=== PATIENT | female | born 1970 | race Hispanic/Latino ===

== ENCOUNTER 2019-04-28 15:50 | Emergency (ER) | payer BC, SELFPAY ==
[2019-04-28] MEDS ORDERED: MAGNESIUM HYDROXIDE 30 ML/UDCUP ONE (17:01)
[2019-04-28] MEDS ORDERED: LIDOCAINE HCL 2% VISCOUS 15 ML UDCUP ONE (17:01)
== END 2019-04-28 18:33 | disposition home or self-care (01) ==
LOC: EDH 15:50
DX: K29.00 Acute gastritis without bleeding (principal); Z98.890 Other specified postprocedural states; Z79.2 Long term (current) use of antibiotics
CPT/HCPCS: 71046; 87804; 93005

== ENCOUNTER 2022-05-09 12:10 | Emergency (ER) | payer BC, OTHER ==
[~2022-05-09] VITALS: Ht 157.5 cm; Wt 53.1 kg
[2022-05-09 16:18] VITALS: BP 142/79
== END 2022-05-09 16:19 | disposition home or self-care (01) ==
LOC: EDH 12:10
DX: S01.01XA Laceration without foreign body of scalp, initial encounter (principal); M54.50 Low back pain, unspecified; Z90.49 Acquired absence of other specified parts of digestive tract; W18.39XA Other fall on same level, initial encounter; Y93.89 Activity, other specified; Y92.89 Other specified places as the place of occurrence of the external cause; Y99.8 Other external cause status
CPT/HCPCS: 12002; 70450; 72125; 72220